=== PATIENT | female | born 1955 | race Caucasian/White ===

== ENCOUNTER → 2025-04-16 08:21 | Outpatient (BNVA) | payer MEDICARE, SELFPAY | PROVIDERS: Family Provider Family Medicine; PCP Family Medicine; Visit Provider Internal Medicine | DX: E03.9 Hypothyroidism, unspecified (principal); E11.9 Type 2 diabetes mellitus without complications; E78.5 Hyperlipidemia, unspecified; I25.10 Atherosclerotic heart disease of native coronary artery without angina pectoris; Z95.5 Presence of coronary angioplasty implant and graft; Z79.85 Long-term (current) use of injectable non-insulin antidiabetic drugs | CPT/HCPCS: 99204 ==

== ENCOUNTER 2025-05-10 07:56 | Outpatient (CLI) | payer MEDICARE, SELFPAY ==
[2025-05-10 09:31] LABS: Estmated Average Glucose 146; Hemoglobin A1C 6.7 % (4.0-6.0)
[2025-05-10 09:41] LABS: Creatinine Urine, Random 57 mg/dL (28-217); Microalbum Creatinine Ratio Ur 18 mg/dL (0-20)
[2025-05-10 09:52] LABS: Alanine Aminotransferase 15 U/L (0-33); Albumin Level 4.5 g/dL (3.5-5.2); Alkaline Phosphatase 58 U/L (35-105); Aspartate Amino Transferase 19 U/L (0-32); Blood Urea Nitrogen 14 mg/dL (8-23); Calcium 9.0 mg/dL (8.5-10.5); Carbon Dioxide 23 mmol/L (22-29); Chloride 103 mmol/L (98-107); Cholesterol 205 mg/dL (0-200); Free T4 Free Thyroxine 1.07 ng/dL (0.82-1.77); Globulin 2.2 g/dL (1.3-4.6); Glucose 106 mg/dL (65-115); HDL Cholesterol 45 mg/dL (60-100); Osmolality Calculated 291 mOsm/kg (285-295); Sodium 140 mmol/L (136-145); Thyroid Stimulating Hormone 4.88 uIU/mL (0.27-4.20); Total Protein 6.7 g/dL (6.6-8.7); Triglycerides 300 mg/dL (0-150)
[2025-05-10 09:59] LABS: Anion Gap 18.2 (5-19); Potassium 4.2 mmol/L (3.5-5.1)
== END 2025-05-10 07:57 | disposition home or self-care (01) ==
PROVIDERS: Internal Medicine; PCP Family Medicine; Visit Provider Internal Medicine Endocrinology, Diabetes & Metabolism
DX: E78.5 Hyperlipidemia, unspecified (principal); E11.9 Type 2 diabetes mellitus without complications; E03.9 Hypothyroidism, unspecified
CPT/HCPCS: 36415; 80053; 80061; 82024; 82044; 82533; 83036; 84439; 84443; 84480

== ENCOUNTER → 2025-05-12 15:52 | Outpatient (BNVA) | payer MEDICARE, SELFPAY | PROVIDERS: PCP Family Medicine; Visit Provider Internal Medicine Endocrinology, Diabetes & Metabolism | DX: E03.9 Hypothyroidism, unspecified (principal); E11.9 Type 2 diabetes mellitus without complications; E78.5 Hyperlipidemia, unspecified | CPT/HCPCS: 99214 ==

== ENCOUNTER 2025-06-18 08:26 | Outpatient (CLI) | payer MEDICARE, SELFPAY ==
[2025-06-18 09:32] LABS: Estmated Average Glucose 140; Hemoglobin A1C 6.5 % (4.0-6.0)
[2025-06-18 09:33] LABS: Creatinine Urine, Random 109 mg/dL (28-217); Microalbum Creatinine Ratio Ur 9 mg/dL (0-20)
[2025-06-18 09:45] LABS: Alanine Aminotransferase 10 U/L (0-33); Albumin Level 4.6 g/dL (3.5-5.2); Alkaline Phosphatase 70 U/L (35-105); Anion Gap 15.0 (5-19); Aspartate Amino Transferase 15 U/L (0-32); Blood Urea Nitrogen 19 mg/dL (8-23); Calcium 9.1 mg/dL (8.5-10.5); Carbon Dioxide 27 mmol/L (22-29); Chloride 104 mmol/L (98-107); Cholesterol 208 mg/dL (0-200); Globulin 2.8 g/dL (1.3-4.6); Glucose 130 mg/dL (65-115); HDL Cholesterol 56 mg/dL (60-100); Osmolality Calculated 298 mOsm/kg (285-295); Potassium 4.0 mmol/L (3.5-5.1); Sodium 142 mmol/L (136-145); Thyroid Stimulating Hormone 3.03 uIU/mL (0.27-4.20); Total Protein 7.4 g/dL (6.6-8.7); Triglycerides 124 mg/dL (0-150)
== END 2025-06-18 08:27 | disposition home or self-care (01) ==
PROVIDERS: PCP Family Medicine; Visit Provider Internal Medicine Endocrinology, Diabetes & Metabolism
DX: E11.9 Type 2 diabetes mellitus without complications (principal); E03.9 Hypothyroidism, unspecified
CPT/HCPCS: 80053; 80061; 82044; 83036; 84436; 84443; 84480